=== PATIENT | male | born 1995 | race Caucasian/White ===

== ENCOUNTER 2024-03-05 14:44 | Emergency (ER) | payer OTHER ==
[~2024-03-05] VITALS: Ht 182.9 cm; Wt 127.3 kg
[2024-03-05] MEDS: NS 1,000 ML IV ONE ×3 (15:42→19:03)
[2024-03-05 15:53] LABS: BASO # 0.1 10^3/uL (0.0-0.2); BASO % 0.3 % (0.0-1.0); EOS % 0.1 % (0.0-3.0); HEMATOCRIT 50.2 % (42.0-52.0); HEMOGLOBIN 17.8 g/dl (13.5-17.5); LYMPH # 2.5 10^3/uL (1.5-5.0); LYMPH % 14.1 % (24.0-44.0); MEAN CORPUSCULAR HEMOGLOBIN 28.6 pg (27.0-33.0); MEAN CORPUSCULAR HGB CONC 35.5 g/dl (32.0-36.5); MEAN CORPUSCULAR VOLUME 80.6 fl (80.0-96.0); MONO # 1.6 10^3/uL (0.0-0.8); MONO % 8.9 % (2.0-8.0); NEUTROPHILS # 13.4 10^3/uL (1.5-8.5); NEUTROPHILS % 75.8 % (36.0-66.0); PLATELET COUNT, AUTOMATED 345 10^3/uL (150-450); RED BLOOD COUNT 6.23 10^6/uL (4.30-6.10); WHITE BLOOD COUNT 17.7 10^3/uL (4.0-10.0)
[2024-03-05 16:16] LABS: ALBUMIN 5.4 G/DL (3.2-5.2); BILIRUBIN,DIRECT 0.7 MG/DL (<0.4); BILIRUBIN,TOTAL 2.3 MG/DL (0.3-1.2); CALCIUM LEVEL 11.2 MG/DL (8.5-10.1); CREATININE FOR GFR 1.73 MG/DL (0.70-1.30); GLOMERULAR FILTRATION RATE 51.1 (>60); POTASSIUM SERUM 4.3 MMOL/L (3.5-5.1)
[2024-03-05] MEDS: IBUPROFEN 600MG TAB PO ONE (17:26)
[2024-03-05 20:15] VITALS: BP 149/73; O2SAT 99
[2024-03-05 20:15] LABS: BLOOD UREA NITROGEN 30 MG/DL (9-23); CALCIUM LEVEL 9.8 MG/DL (8.5-10.1); CARBON DIOXIDE LEVEL 24 MMOL/L (20-31); CHLORIDE LEVEL 101 MMOL/L (98-107); CPK CREATINE PHOSPHOKINASE 1709 U/L (46-171); CREATININE FOR GFR 1.43 MG/DL (0.70-1.30); GLOMERULAR FILTRATION RATE > 60.0 (>60); GLUCOSE, FASTING 71 MG/DL (60-100); POTASSIUM SERUM 4.4 MMOL/L (3.5-5.1); SODIUM LEVEL 134 MMOL/L (136-145)
[2024-03-05 20:48] VITALS: TEMP 97.3
== END 2024-03-05 20:49 | disposition home or self-care (01) ==
LOC: M ED 14:44
DX: R55 Syncope and collapse (principal); M62.82 Rhabdomyolysis

== ENCOUNTER 2024-09-04 21:35 | Emergency (ER) | payer OTHER ==
[~2024-09-04] VITALS: Ht 182.9 cm; Wt 146.1 kg
[2024-09-05] MEDS ORDERED: PRED10TA2 PO (06:10)
[2024-09-05] MEDS: predniSONE 20 MG TAB PO ONE ×2 (06:16→06:17)
[2024-09-05 06:19] VITALS: BP 131/82; TEMP 96.9; O2SAT 98
== END 2024-09-05 06:19 | disposition home or self-care (01) ==
LOC: M ED 21:35
DX: J20.9 Acute bronchitis, unspecified (principal); F17.210 Nicotine dependence, cigarettes, uncomplicated; F10.10 Alcohol abuse, uncomplicated; Z79.52 Long term (current) use of systemic steroids
CPT/HCPCS: 36415; 71046; 80047; 87486; 87581; 87633; 87798; 99283; J7512

== ENCOUNTER 2025-06-04 07:17 | Emergency (ER) | payer OTHER ==
[~2025-06-04] VITALS: Ht 182.9 cm; Wt 138.9 kg
[~2025-06-04 07:17] MED LIST: PRED10TA2 PO
[2025-06-04 09:14] LABS: BASO # 0.0 10^3/uL (0.0-0.2); BASO % 0.5 % (0.0-1.0); EOS # 0.1 10^3/uL (0.0-0.5); EOS % 1.4 % (0.0-3.0); KETONE, URINE AUTO RFX NEGATIVE (NEGATIVE); LEUKOCYTE ESTERASE UR AUTO RFX NEGATIVE (NEGATIVE); LYMPH # 2.2 10^3/uL (1.5-5.0); LYMPH % 25.1 % (24.0-44.0); MONO # 0.9 10^3/uL (0.0-0.8); MONO % 10.0 % (2.0-8.0); MUCUS, URINE RFX SMALL (NEGATIVE); NEUTROPHILS # 5.4 10^3/uL (1.5-8.5); NEUTROPHILS % 62.8 % (36.0-66.0); NITRITE, URINE AUTO RFX NEGATIVE (NEGATIVE); PLATELET COUNT, AUTOMATED 295 10^3/uL (150-450); RBC, URINE AUTO RFX 0 /HPF (0-3); SQUAM EPITHELIAL CELL UR AURFX 0 /HPF (0-6); WBC, URINE AUTO RFX 1 /HPF (0-3)
[2025-06-04 09:33] LABS: ALT/SGPT 43.0 U/L (7.0-40); AST/SGOT 31.0 U/L (<34); CALCIUM LEVEL 10.2 MG/DL (8.5-10.1); CARBON DIOXIDE LEVEL 28.0 MMOL/L (20-31); CHLORIDE LEVEL 102.0 MMOL/L (98-107); CREATININE FOR GFR 1.17 MG/DL (0.70-1.30); GLOMERULAR FILTRATION RATE 87.6 (>60); POTASSIUM SERUM 3.9 MMOL/L (3.5-5.1); SODIUM LEVEL 142.0 MMOL/L (136-145)
[2025-06-04 10:30] LABS: CPK CREATINE PHOSPHOKINASE 155.0 U/L (46-171)
[2025-06-04 10:31] VITALS: BP 132/78; O2SAT 96
[2025-06-04] MEDS ORDERED: NYST1POW3 TOP (10:42)
[2025-06-04] MEDS ORDERED: NYST100085 TOP (10:42)
[2025-06-04 10:47] VITALS: TEMP 98.2
== END 2025-06-04 10:48 | disposition home or self-care (01) ==
LOC: M ED 07:17
DX: B37.42 Candidal balanitis (principal); R17 Unspecified jaundice; Z79.2 Long term (current) use of antibiotics